=== PATIENT | male | born 1970 | race Caucasian/White ===

== ENCOUNTER 2025-02-09 13:56 | Emergency (ER) | payer OTHER, SELFPAY ==
--- OUTSIDE RECORDS SUMMARY | 2024-11-02 11:30 | XMS_ITS | Encounter Summary ---
[facility] Address [address] [place] [address] Care Team Providers Care Business Development Assistant Name Role Phone Marika Mendez PA-C Primary Care Provider [phone] Reason for Visit * ReasonCommentsKnee Problem Encounter Details DateTypeDepartmentCare Team (Latest Contact Info)Xofpqajajyj86/05/2025 12:30 PM CDTTherapy [facility] [address] [phone] [place] [address] [place], [place] [phone] Chronic pain of right knee (Primary Dx) Social History Tobacco UseTypesPacks/DayYears UsedDateSmoking Tobacco: GyxymbRktkdguftc690Mumo: 2010Smokeless Tobacco: FormerSnuff, ChewQuit: 2010Alcohol UseStandard Drinks/WeekCommentsYes6 (1 standard drink = 0.6 oz pure alcohol)PHQ-2AnswerDate RecordedPHQ-2 Etqfr264Sex and Gender InformationValueDate RecordedSex Assigned at BirthNot on fileLegal LsiJufg44/10/2012 5:04 AM CDTGender Identity Not on fileSexual OrientationNot on filedocumented as of this encounter Progress Notes * Jeffery Peña, PT - 11/02/2024 12:30 PM CDT Physical Therapy Discharge Summary Vijay Fernando has not attended therapy since last documented visit. There are no further visits scheduled at this time and Vijay is currently considered discharged from therapy. Unable to assesscurrent level of function and goals due to unplanned discharge. PT - Discharge Total Visits: 2 Reason for discharge: Patient has not been consistent with attendance and/or failed to schedule appointments as planned. Please see previous visit documentation of status at last treatment. Jeffery Peña, PT Physical Therapy follow up Payor: [employer] / Plan: SELF MANAGED CARE / Product Type: Commercial / Visit Number: 2 Visit Diagnosis: Diagnosis and Associated Orders ICD-10-CM 1. Chronic pain of right knee M25.561 G89.29 Referring Diagnosis: Chronic pain of right knee Date of Onset/Referral: 09/27 Precautions/Barriers/Pertinent Medical History: Left knee meniscectomy several years ago Orders: Eval and treat SUBJECTIVE Reason for Visit: Patient states knee feels about the same. Still getting some pain when pulling itvery tight in deep knee flexion. Has not been getting pain when standing up, and is able to do mostof his exercises without difficulty. No questions on HEP. Pain: Current: 0/10 and Worst: 3/10 OBJECTIVE ROM: Knee: AROM Right 5-0-130 deg Strength: Motion (x/5) Right Left Comments Hip Flexion 5 5 Hip Extension Hip Abduction 4+ 4+ Hip Adduction 4+ 4+ Hip External Rot. Hip Internal Rot. Knee Flexion 5 5 Knee Extension 4+ 4+ TODAY'S INTERVENTION/CHARGES: Therapeutic Exercise - (91968): 8 minutes Exercises designed to develop strength, endurance, range of motion and flexibility - Bike warm up for 5 minutes level 4 - Review of objective measures, see above - Review of HEP Therapeutic Activity - (75390): 26 minutes Dynamic activities to improve functional performance at home, work, and in the community. - Squat to 18 inch box, 1 x 10 no weight, - Goblet squat with 25 lbs, 2 x 10 - Single leg RDL 20 lbs kettlebell, 1 x 12 with each leg - Lunge, 2 x 12 each leg - Leg press with 120 lbs and >90 degree knee flexion, 3 x 8 - Sled push with 45 lbs plate, 60 feet forward, 60 feet backward pull - Discussed progression of exercises by altering load, intensity, or positioning to increase or decrease difficulty - Discussed ways to increase load to single leg exercises as well as target deep squat position in gym Home Program: Access Code: [email or web address] URL: [email or web address] Date: 10/26/2024 Prepared by: Jeffery Peña Exercises - Staggered Stance Squat - 3-4 x daily - 7 x weekly - 2-3 sets - 10 reps - Forward Step Down Touch with Heel - 3-4 x daily - 7 x weekly - 2-3 sets - 6-8 reps - Single-Leg Yi Deadlift With Kettlebell - 3-4 x daily - 7 x weekly - 2 sets - 10-12 reps Timed Charges (Minutes): 51128 - Therapeutic Activities: 26 [id number] - Therapeutic Exercise: 8 Timed Code Treatment Minutes: 34 Total Treatment Minutes: 34 ASSESSMENT Therapist Impression/Patient Response: Patient tolerates all exercises well, including the deep legpress with 120 lbs. PT provided education on progression of exercises to continue to see benefit. Patient will perform HEP in addition to his gym routine and return to the clinic if symptoms regress. Goals/Functional Outcomes (to be met by end of therapy, noted in PLAN below): Patient will be independent with home exercise program for improved self management. Patient will improve Knee Outcome Survey score from 69% to greater than 80% (MCID + 7%, higher score indicates less disability) indicating improvement in general function. 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 Sports/Leisure: Return to prior level of leisure or recreational activities, including deep squatting, no limitation. PLAN Recommendations/Plan for Next Visit: Assess response to independent management, continue to progress load as tolerated PT Frequency/Duration: 1x/week for 12 visits MING ASSISTANT documented in this encounter Plan of Treatment Not on file documented as of this encounter Visit Diagnoses Diagnosis Chronic pain of right knee- Primary documented in this encounter Care Teams Team MemberRelationshipSpecialtyStart DateEnd Date Marika Mendez PA-C [address] [place] [address] PCP - GeneralPhysician Assistant09/26/23documented as of this encounter
--- OUTSIDE RECORDS SUMMARY | 2024-12-27 12:10 | XMS_ITS | Encounter Summary ---
[facility] Address [address] [place] [address] Care Team Providers Care Shipping/Receiving Clerk Name Role Phone Marika Mendez PA-C Primary Care Provider [phone] Reason for Visit * ReasonCommentsFollow-up Encounter Details DateTypeDepartmentCare Team (Latest Contact Info)Weyfwqqiefk62/30/2025 1:10 PM CDTOffice Visit [facility] [address] [phone] Jo Aguirre, PRODUCT DESIGN SPECIALIST, ENTERPRISE SALES PERSON [address] [place], [place] [address] Lower abdominal pain (Primary Dx) Social History Tobacco UseTypesPacks/DayYears UsedDateSmoking Tobacco: QmodieNflazsvzvg308Kjhy: 2010Smokeless Tobacco: FormerSnuff, ChewQuit: 2010Alcohol UseStandard Drinks/WeekCommentsYes6 (1 standard drink = 0.6 oz pure alcohol)PHQ-2AnswerDate RecordedPHQ-2 Obmml094Sex and Gender InformationValueDate RecordedSex Assigned at BirthNot on fileLegal DvsOgjs63/10/2012 5:04 AM CDTGender Identity Not on fileSexual OrientationNot on filedocumented as of this encounter Last Filed Vital Signs Vital SignReadingTime TakenCommentsBlood Pressure--Pulse--Temperature-- Respiratory Rate--Oxygen Saturation--Inhaled Oxygen Concentration--Tpfdqp88.3 kg (168 lb 3.2 oz)12/27/2024 1:08 PM BIGZtbsfg333.2 cm (5' 7)12/27/2024 1:08 PM CDTBody Mass Index26.341 1:08 PM CDTdocumented in this encounter Patient Instructions * Patient Instructions* Jo Aguirre APRN, CNP - 12/27/2024 1:10 PM CDT Wei, today you were seen for a follow up regarding abdominal discomfort. You are to continue to eatsmaller more frequent meals. Continue to avoid known trigger foods. Contact the GI Clinic should the symptoms of diverticulitis reoccur. Should they occur, start a liquid diet, and send a my chart note. Based on symptoms, an abdominal CT may be ordered to rule out diverticulitis. You will follow upin the GI Clinic as needed or in one year. Plan: Continue to eat smaller more frequent meals. Continue to avoid known trigger foods. Contact the GI Clinic should the symptoms of diverticulitis reoccur. Should they occur, start a liquid diet, and send a my chart note. Based on symptoms, an abdominal CT may be ordered to rule out diverticulitis. You will follow up in the GI Clinic as needed or in one year. documented in this encounter Progress Notes * Jo Aguirre APRN, CNP - 12/27/2024 1:10 PM CDT GI Clinic Progress Note Name: Vijay Fernando CSN: [id number] : 1970 Date of Visit: 12/27/24 CHIEF COMPLAINT: Lower Abdominal Discomfort; History of Diverticulitis HISTORY OF PRESENT ILLNESS: Vijay Fernando is a 54 y.o. male seen in clinic today for follow-up regarding the above complaint. Wei was diagnosed with diverticulitis on 04/12/23, and treated with a 10-day course of Augmentin. Despite initial improvement, he continued to experience burning abdominal pain and remained on a liquid diet. A follow-up CT scan on 04/23/23 was normal. By May, Wei reported feeling better with stableweight and no reflux or bloating, though he still had intermittent sharp, stabbing lower abdominal pain. A CT scan was again negative, and a colonoscopy was recommended. In September, fearing a recurrence of diverticulitis, he contacted the GI clinic; another CT was negative. A colonoscopy on 10/11/23 revealed sigmoid diverticulosis and a small polyp, which was removed; biopsies were normal, and a repeat colonoscopy was advised in 10 years. By November, Wei reported significant improvement, with a healthy diet, stable weight at 162 lbs, and adequate hydration. He continued to experience occasionalfocal abdominal discomfort but denied systemic symptoms or abnormal bowel habits, maintaining [employer] stool type 4 twice daily. Today, states he experienced per/central abdominal pain which was focal, lasted 4-5 days, describedas sharp and stabbing in early November. He implemented a liquid diet for 24 hours, and a bland dietfor the next week, and symptoms resolve. He thinks it may have been due to eating steak, as red meat can be a trigger. He was also experiencing mild symptoms today, but feels this maybe due to him having over eaten on his birthday. Denies any fever, chills, nausea or vomiting. Appetite has been good. Continues to eat smaller morefrequent meals. Diet described as fairly healthy and well balanced. Typically avoids trigger foods including meats, spicy foods, and junk food. Averages 48-64 oz of water daily. Weight has been stable. Abdominal pain intermittent and noted above. Denies any early satiety or abdominal fullness. No abdominal bloating. Bowel habit described as a [employer] stool scale type 4, twice daily. No melena or hematochezia. No new medications, medication changes, or recent antibiotic use. He only takes NSAIDs as needed. Dietary supplements include calcium, vitamin-D, and a multivitamin. Averages 0-2 alcoholic beverages a week. Former smoker. No marijuana use, no edibles, no illicit drug use. Averages 7 hours sleep nightly. Previous abdominal surgery would include an umbilical hernia repair. Current medications, allergies, medical problems, family and social histories reviewed and updated as indicated. O: Review of Systems - Negative except as given in the HPI. PMH: Past Medical History: Diagnosis Date Ascending aorta dilatation (HRC) Essential (primary) hypertension (HRC) Squamous cell carcinoma of skin of trunk PSH: Past Surgical History: Procedure Laterality Date MENISCECTOMY Left TONSILLECTOMY Outpatient Meds: Outpatient Medications Prior to Visit Medication Sig Dispense Refill finasteride (PROPECIA) 1 MG tablet Take 1 Tablet (1 mg) by mouth daily. lisinopril (ZESTRIL) 10 MG tablet Take 1 Tablet (10 mg) by mouth daily. 90 Tablet 3 No facility-administered medications prior to visit. Family History Problem Relation Name Age of Onset High Cholesterol Mother Dot Hypertension Mother Dot Cancer Father Kalyan Hypertension Father Kalyan Crohn's Disease Sister Social History Tobacco Use Smoking status: Former Current packs/day: 0.00 Average packs/day: 1 pack/day for 20.0 years (20.0 ttl pk-yrs) Types: Cigarettes Quit date: 2009 Years since quittin.8 Smokeless tobacco: Former Types: Snuff, Chew Quit date: 2009 Vaping Use Vaping status: Never Used Substance Use Topics Alcohol use: Yes Alcohol/week: 6.0 standard drinks of alcohol Types: 6 Cans of beer per week Drug use: Never PE: There were no vitals filed for this visit. General appearance: alert, cooperative, no distress, appears stated age, Eyes: conjunctivae/corneasclear. Abdomen: soft, non-tender; bowel sounds normal; Skin: Warm, dry and Neurologic: Grossly normal LABS: Lab Results Component Value Date WBC 5.1 07/22/2023 Hemoglobin 13.5 07/22/2023 HCT 40.8 07/22/2023 MCV 92.5 07/22/2023 Platelets 252 07/22/2023 Lab Results Component Value Date Alkaline Phosphatase 53 07/22/2023 Bilirubin, Total 0.6 07/22/2023 Protein, Total 6.9 07/22/2023 Albumin 4.2 07/22/2023 AST (SGOT) 22 07/22/2023 ALT (SGPT) 23 07/22/2023 Lab Results Component Value Date Sodium 137 11/28/2024 Potassium 4.3 11/28/2024 Chloride 103 11/28/2024 CO2 25 11/28/2024 Lab Results Component Value Date Creatinine 0.82 11/28/2024 IMAGING Reviewed in [facility] Everywhere IMPRESSION/PLAN 54 year-old male seen in clinic for follow-up regarding lower abdominal discomfort. History of diverticulitis, treated in March/2023. Colonoscopy 09/2023 was normal. Repeat in 10 years. Appetite is good, weight has been stable. Denies any heartburn reflux, or abdominal bloating. Still experiences intermittent episodes of lower/central abdominal discomfort which can lasts minutes to an hour, described as stabbing and sharp, and is focal. Resolves on its own. Last episode occurred in early November, and lasted about 4-5 days then resolved. Bowel habit described as a [employer] stool scale type 4, 2 times daily. No melena or hematochezia. Intermittent Lower Abdominal Pain Continue to eat smaller more frequent meals. Continue to avoid known trigger foods. Contact the GI Clinic should the symptoms of diverticulitis reoccur. Should they occur, start a liquid diet, and send a my chart note. Based on symptoms, an abdominal CT may be ordered to rule out diverticulitis. You will follow up in the GI Clinic as needed or in one year. Total time for the visit was 18 minutes including, but not limited to, vvf-ynas-pj-face time spent reviewing records, counseling, and coordination of care. Patient is agreeable to the plan of care, and is aware to contact the GI Clinic or their primary provider if symptoms change or worsen significantly. documented in this encounter Plan of Treatment Not on file documented as of this encounter Visit Diagnoses Diagnosis Lower abdominal pain- Primary Abdominal pain, other specified site documented in this encounter Care Teams Team MemberRelationshipSpecialtyStart DateEnd Date Marika Mendez PA-C [address] [place] [address] PCP - GeneralPhysician Assistant09/26/23documented as of this encounter
[2025-02-09] VITALS (8 sets, daily range): BP systolic 129–146; BP diastolic 79–88; PULSE 61–79; RESP 11–24; TEMP 36.1; O2SAT 94–100; BMI 26.6
--- OUTSIDE RECORDS SUMMARY | 2025-02-09 13:59 | XMS_ITS | Clinical Summary ---
Author Organization [facility] Address [address], [place] [address] Care Team Providers Care Double Head Machine Operator Name Role Phone Marika Mendez PA-C Primary Care Provider + [phone] Source Comments You are receiving this document as you are listed as the primary care provider,follow-up provider, or the patient has been referred to you for consultation.This is in compliance with the Medicare and[facility] Hospitalcaid EHR Incentive Program,which states Providers who transition their patient to another setting of careor provider of care or refers their patient to another provider of care shouldprovide summary care record for each transition of care or referral. [facility] Allergies Active AllergyReactionsCriticalityNoted DateCommentsAzithromycinOther, see jyndhnuhAes74/21/2021 Other reaction(s): stomach upset, irritation EscitalopramOther, see pczfkqjpGiac90/30/2020 Other reaction(s): weight gain, grinding teeth, felt off Medications MedicationSigDispense QuantityRefillsLast FilledStart DateEnd DateStatus finasteride (PROPECIA) 1 MG tablet Take 1 Tablet (1 mg) by mouth daily.05/30/2023ctive lisinopril (ZESTRIL) 10 MG tablet Indications:Essential hypertension (HRC)Take 1 Tablet (10 mg) by mouth daily. 90 Tablet ctive Active Problems ProblemNoted DateDiagnosed DateChronic left shoulder pain09/27/2024Essential kefdaeuupafu07/17/2023neurysm of ascending aorta without nnsvimu3007/14/2022 Depression with kmukjqd37/28/9349Oxtivxtzjnm51/28/2010Thoracic aortic ectasia Squamous cell carcinoma of skin of trunk Encounters DateTypeDepartmentCare IppwUtgncgprknu22/30/2025 1:10 PM CDTOffice Visit [facility] at [facility] [address] [address] [place] [address] Jo Aguirre, TIE LAYER, FRANCI Lower abdominal pain (Primary Dx)12/11/2024Results Follow-Up [place] [address] [facility] [address] [place] [phone] Marika Mendez PA-C 12/10/2024 2:00 PM CDTProcedure Visit Cardiology at [facility] [address] [address] [address] [place] [address] 11/30/2024Results Follow-Up [place] [address] [facility] [address] [place] [phone] Marika Mendez PA-C 11/28/2024 11:20 AM CDTLab Visit [facility] [address] [place] [address] Essential hypertension (HRC)11/28/2024 11:00 AM CDTOffice Visit [place] [address] [facility] [address] [place] [phone] Marika Mendez PA-C Essential hypertension (HRC) (Primary Dx); Aneurysm of ascending aorta without rupture (HRC)from Last 3 Months Immunizations ImmunizationAdministration DatesNext DueTd013471Wjnd74/23/2024 Family History Medical HistoryRelationNameCommentsCancerBirth FatherJeromeHypertensionBirth FatherJeromeHigh CholesterolBirth MotherDotHypertensionBirth MotherDotCrohn's DiseaseSisterRelationNameStatusCommentsBirth FatherJeromeBirth MotherDotSister Alive Social History Tobacco UseTypesPacks/DayYears UsedDateSmoking Tobacco: SxsodiPaflluapik576Qkgz: 2009Smokeless Tobacco: FormerSnuff, ChewQuit: 2010 Tobacco Cessation:Counseling Given: Not Answered Alcohol UseStandard Drinks/WeekCommentsYes6 (1 standard drink = 0.6 oz pure alcohol)PHQ-2AnswerDate RecordedPHQ-2 Xkojl319Sex and Gender Information ValueDate RecordedSex Assigned at BirthNot on fileLegal QmsCjoz27/10/2012 5:04 AM CDTGender IdentityNot on fileSexual OrientationNot on file Last Filed Vital Signs Vital SignReadingTime TakenCommentsBlood Hsmgyqbg409/8311/28/2024 10:40 AM CDT Izkvb864111/28/2024 10:40 AM FFXEotgczeiqsk67.2 ??C (97.2 ??F)07/03/2024 12:07 PM CDTRespiratory Tgqf282707/03/2024 12:07 PM CDTOxygen Mydrojjxsf80%07/03/2024 12:07 PM CDTInhaled Oxygen Concentration--Phvqws57.3 kg (168 lb 3.2 oz)12/27/2024 1:08 PM TQQCmbhlr482.2 cm (5' 7)12/27/2024 1:08 PM CDTBody Mass Index26.341 1:08 PM CDT Plan of Treatment Health MaintenanceDue DateLast DoneCommentsAdult Preventive Visit12/25/1987HepB Vaccine (1)1988Pneumococcal Vaccine 50+ Yrs (1 of 1 - PCV)12/25/2019 Zoster/Shingles Vaccine (1 of 2)12/25/2019COVID-19 Vaccine (1 - season) 2024Influenza Vaccine (#1)2024PSA Screening Ucpwjgmcqr97/01/2026 Postponed from 1970 (Discussed and Declined)Zwnqljkkisq76/04/2028 10/01/2022iabetes Screening- (based on age and BMI), 3DTaP/Tdap/Td Vaccine (2 - Tdap)/, 02/28/1999 Vyxytbsxtow73/13//4RSV Vaccine (1 - 1-dose 75+ series)2044HIV Screening (Preventive Services)Fjjtcysbf91/24/2023Hep C Screening (Preventive Services)Gaplnusnv20/24/2023HepA VaccineAged OutNo longer eligible based on patient's age to complete this topicHib VaccineAged OutNo longer eligible based on patient's age to complete this topicIPV (Polio) VaccineAged OutNo longer eligible based on patient's age to complete this topicMCV4 VaccineAged OutNo longer eligible based on patient's age to complete this topicMeningococcal B VaccineAged OutNo longer eligible based on patient's age to complete this topic Procedures Procedure NamePriorityDate/TimeAssociated DiagnosisCommentsECHOCARDIOGRAMRoutine 12/10/2024 1:51 PM CDT Aneurysm of ascending aorta without rupture (HRC) BASIC METABOLIC XUMGABsacxwd45/01/2025 10:57 AM CDT Essential hypertension HGB J7OXjfnrso94/01/2025 10:57 AM CDT Essential hypertension ENDOSCOPY, COLON, SCREENING/OELHJZMXMAYdnumpj78/13/2024 2:10 PM CDT Diverticulitis LIPID PANEL & DIRECT LDL (IF NEEDED)Gqnuzfj3310/01/2022 2:21 PM CDT Aneurysm of ascending aorta without rupture (HRC) HIV 1/2 AG/AB 4TH EWVQpyexqc64/24/2023 7:34 AM CDT Screening for HIV (human immunodeficiency virus) HEPATITIS C ANTIBODY, WITH REFLEX (ANTI-HCV)Gxibefj6807/21/2022 7:34 AM CDT Need for hepatitis C screening test from Last 3 Months or Most Recently Relevant to Health Maintenance Results * Echocardiogram (12/10/2024 1:51 PM CDT)Specimen (Source)Anatomical Location / LateralityCollection Method / VolumeCollection TimeReceived Time12/10/2024 1:51 PM CDT Narrative PN ECHO - 12/10/2024 4:37 PM CDT Procedure type: ECHOCARDIOGRAM Procedure ? 12/10/2024 1:51 PM date/time: Facility: ? [facility] Study location: ? [facility] Accession #: ?[id number] SUMMARY: Moderate dilatation of the aortic root (4.5 cm). No significant change from prior study. FINDINGS LEFT VENTRICLE: Left ventricular ejection fraction is estimated at 60%. Normal left ventricular size, global and regional function. Normal left ventricular wall thickness. Normal left ventricular diastolic function. RIGHT VENTRICLE: Right ventricle is normal in size and function. LEFT ATRIUM: Normal left atrium. RIGHT ATRIUM: Normal right atrial size. MITRAL VALVE: Normal mitral valve structure and function. TRICUSPID VALVE: Normal tricuspid valve structure and function. Pulmonary artery systolic pressure estimate is normal. AORTIC VALVE: Normal aortic valve structure and function. The aortic valve is tricuspid. AORTA/GREAT VESSELS: Moderate dilatation of the aortic root (4.5 cm). The inferior vena cava is normal suggesting normal RA pressure. PULMONARY VALVE: Normal pulmonic valve structure and function. PERICARDIUM & PLEURA: There is no significant pericardial effusion. AORTIC VALVE Peak velocity: ? 1.3 m/s Peak gradient: ? 6.5 mmHg Mean velocity: ? 0.9 m/s Mean gradient: ? 4 mmHg Area (ContVTI): ?3.5 cm^2 Area (ContVTI) Index: ?1.9 cm^2/m^2 Area (Cont VMax): ?3.4 cm^2 AV VTI: ?26.9 cm Dimensionless Index: ? 0.93 LVOT LVOT diameter: ? 2.2 cm LVOT VTI: ?25.1 cm Peak velocity: ? 1.1 m/s Peak gradient: ? 5 mmHg Mean velocity: ? 80.1 cm/s Mean gradient: ? 3 mmHg LVOT Area: ? 3.8 cm^2 LVOT Stroke Volume: ?95.4 ml LVOT SV index: ? 52 ml/m^2 AORTA Sinus of Valsalva: ? 4.5 cm Sinus of Valsalva Index: ?? 2.64 cm/m Ascending Ao (prox): ? 3.6 cm Asc Ao (prox) Index: ? 2.12 cm/m MITRAL VALVE Peak E-wave: ? 63.4 cm/s Peak A-wave: ? 72.8 cm/s MV P1/2t: ?85 ms E/A ratio: ? 0.87 Area (P1/2t): ?2.6 cm^2 Deceleration time: ? 289 ms TRICUSPID VALVE TR velocity: ? 1.7 m/s TR gradient: ? 11.8 mmHg LEFT ATRIUM LA Area (A4C): ? 16.9 cm^2 LA Volume (BP): ?43.2 ml LA Volume (BP) Index: ?23.6 ml/m^2 LA Volume (A2C): ? 40.2 ml LA Volume (A4C): ? 42.9 ml LA Volume (A2C) Index: ? 22 ml/m^2 LA Volume (A4C) Index: ? 23.4 ml/m^2 LEFT VENTRICLE LVIDd (2D): ?5.2 cm LVIDs (2D): ?2.9 cm Septum diastolic (2D): ? 1.1 cm Post wall diastolic (2D): ?1 cm Rel wall thickness: ?0.4 LV mass (ASE): ? 205.3 g LV mass (ASE) Index: ? 111.9 g/m^2 FS: ?44 % LV DIASTOLIC FUNCTION E' septal velocity: ?7.6 cm/s E' lateral velocity: ? 13.8 cm/s A' septal velocity: ?12.6 cm/s A' lateral velocity: ? 10.6 cm/s E/E' Septal: ? 8.3 E/E' Lateral: ?4.6 E/E' Average: ?6.5 LEFT VENTRICLE: M-MODE LVEDV (Teich): ? 130.1 ml LVESV (Teich): ? 33.3 ml EF (Teichholz): ?74 % EF Estimated: ? 60 % RIGHT VENTRICLE TAPSE: ? 2.4 cm RV S' velocity: ?10.4 cm/s IVC IVC expiration: ?2 cm INDICATIONS Aortic root dilation. PROCEDURE 2-D Quality: Adequate quality 2-dimensional echo was performed and interpreted. Doppler Quality: Adequate quality pulse, continuous wave, and color Doppler was performed and interpreted. Contrast medium: ?Not Applicable Height: ? 67 in. Weight: ? 159 lb. Blood pressure: ? 133 / 84 mmHg BSA: ?1.8 m^2 BMI: ?24.9 kg/m^2 Rhythm: ? Sinus bradycardia DEMOGRAPHICS Patient name: ? NOEMÍ Montes Date of : ?1970 Age: ?53 year(s) Gender: ? Male Procedure Staff Interpreting ?EDDIE MICHELE MD Senior Quality Control Inspector: Vp Packaging: ?JG, RD Ordering Provider: ?MARIKA PALACIOS PA-C Primary Provider: ? MARIKA MENDEZ. FRED Procedure Note Eddie Michele MD - 12/10/2024 Procedure type: ECHOCARDIOGRAM Procedure 12/10/2024 1:51 PM date/time: Facility: [facility] Study location: [facility] SUMMARY: Moderate dilatation of the aortic root (4.5 cm). No significant change from prior study. FINDINGS LEFT VENTRICLE: Left ventricular ejection fraction is estimated at 60%. Normal left ventricular size, global and regional function. Normal left ventricular wall thickness. Normal left ventricular diastolic function. RIGHT VENTRICLE: Right ventricle is normal in size and function. LEFT ATRIUM: Normal left atrium. RIGHT ATRIUM: Normal right atrial size. MITRAL VALVE: Normal mitral valve structure and function. TRICUSPID VALVE: Normal tricuspid valve structure and function. Pulmonary artery systolic pressure estimate is normal. AORTIC VALVE: Normal aortic valve structure and function. The aortic valve is tricuspid. AORTA/GREAT VESSELS: Moderate dilatation of the aortic root (4.5 cm). The inferior vena cava is normal suggesting normal RA pressure. PULMONARY VALVE: Normal pulmonic valve structure and function. PERICARDIUM & PLEURA: There is no significant pericardial effusion. AORTIC VALVE Peak velocity: 1.3 m/s Peak gradient: 6.5 mmHg Mean velocity: 0.9 m/s Mean gradient: 4 mmHg Area (ContVTI): 3.5 cm^2 Area (ContVTI) Index: 1.9 cm^2/m^2 Area (Cont VMax): 3.4 cm^2 AV VTI: 26.9 cm Dimensionless Index: 0.93 LVOT LVOT diameter: 2.2 cm LVOT VTI: 25.1 cm Peak velocity: 1.1 m/s Peak gradient: 5 mmHg Mean velocity: 80.1 cm/s Mean gradient: 3 mmHg LVOT Area: 3.8 cm^2 LVOT Stroke Volume: 95.4 ml LVOT SV index: 52 ml/m^2 AORTA Sinus of Valsalva: 4.5 cm Sinus of Valsalva Index: 2.64 cm/m Ascending Ao (prox): 3.6 cm Asc Ao (prox) Index: 2.12 cm/m MITRAL VALVE Peak E-wave: 63.4 cm/s Peak A-wave: 72.8 cm/s MV P1/2t: 85 ms E/A ratio: 0.87 Area (P1/2t): 2.6 cm^2 Deceleration time: 289 ms TRICUSPID VALVE TR velocity: 1.7 m/s TR gradient: 11.8 mmHg LEFT ATRIUM LA Area (A4C): 16.9 cm^2 LA Volume (BP): 43.2 ml LA Volume (BP) Index: 23.6 ml/m^2 LA Volume (A2C): 40.2 ml LA Volume (A4C): 42.9 ml LA Volume (A2C) Index: 22 ml/m^2 LA Volume (A4C) Index: 23.4 ml/m^2 LEFT VENTRICLE LVIDd (2D): 5.2 cm LVIDs (2D): 2.9 cm Septum diastolic (2D): 1.1 cm Post wall diastolic (2D): 1 cm Rel wall thickness: 0.4 LV mass (ASE): 205.3 g LV mass (ASE) Index: 111.9 g/m^2 FS: 44 % LV DIASTOLIC FUNCTION E' septal velocity: 7.6 cm/s E' lateral velocity: 13.8 cm/s A' septal velocity: 12.6 cm/s A' lateral velocity: 10.6 cm/s E/E' Septal: 8.3 E/E' Lateral: 4.6 E/E' Average: 6.5 LEFT VENTRICLE: M-MODE LVEDV (Teich): 130.1 ml LVESV (Teich): 33.3 ml EF (Teichholz): 74 % EF Estimated: 60 % RIGHT VENTRICLE TAPSE: 2.4 cm RV S' velocity: 10.4 cm/s IVC IVC expiration: 2 cm INDICATIONS Aortic root dilation. PROCEDURE 2-D Quality: Adequate quality 2-dimensional echo was performed and interpreted. Doppler Quality: Adequate quality pulse, continuous wave, and color Doppler was performed and interpreted. Contrast medium: Not Applicable Height: 67 in. Weight: 159 lb. Blood pressure: 133 / 84 mmHg BSA: 1.8 m^2 BMI: 24.9 kg/m^2 Rhythm: Sinus bradycardia DEMOGRAPHICS Patient name: NOEMÍ Montes Date of : 1970 Age: 53 year(s) Gender: Male Procedure Staff Interpreting EDDIE MICHELE MD Senior Quality Control Inspector: Vp Packaging: XOCHITL HERNANDEZ Ordering Provider: MARIKA MENDEZ. FRED Primary Provider: MARIKA MENDEZ. FRED Authorizing ProviderResult TypeResult StatusAmy Chadwick MARIN ECHO ORDERABLESFinal ResultPerforming OrganizationAddressCity/State/ZIP CodePhone Number PN ECHO * (ABNORMAL) BMP (11/28/2024 10:57 AM CDT)ComponentValueRef RangeTest Method Analysis TimePerformed AtPathologist JtkykwfanMikpqb217041 - 145 mmol/L 11/28/2024 6:05 PM [facility]ORATORYPotassium4.33.5 - 5.1 mmol/L 11/28/2024 6:05 PM [facility] VTLFNNFZJFLieiiljg13022 - 109 mmol/L 11/28/2024 6:05 PM [facility] FBXCTGYMSBUO51563 - 29 mmol/L1 6:05 PM [facility] LABORATORYAnion Gap96 - 16 mmol/L1 6:05 PM [facility] LABORATORYCalcium9.68.4 - 10.4 mg/dL11/28/2024 6:05 PM [facility] DVBONURNJQYGN319 - 26 mg/dL11/28/2024 6:05 PM [facility] LABORATORYCreatinine0.820.73 - 1.18 mg/dL11/28/2024 6:05 PM [facility] QWUXFKNEYFVwhhsgk211(H)70 - 100 mg/dL11/28/2024 6:05 PM [facility] LABORATORYComment:The given reference range is for the fasting state. Non- fasting reference range for glucose is 70 -180 mg/dL.GFR, Estimated>60>60 mL/min/1.50p76611/28/2024 6:05 PM [facility] LABORATORYHours Fasting0.08 - 12 Hours11/28/2024 6:05 PM [facility] LABORATORYSpecimen (Source)Anatomical Location / LateralityCollection Method / VolumeCollection TimeReceived Time BloodVenipuncture / Yojpitu4911/28/2024 10:57 AM CDT1 10:57 AM CDT Narrative Authorizing ProviderResult TypeResult StatusAmy Chadwick Andrea WHITINGB_1Final Result Performing OrganizationAddressCity/State/ZIP CodePhone Number [facility] CLIA: [id number] [place] [address] * (ABNORMAL) Hgb A1C (Expected: Now) - Collect in Lab (11/28/2024 10:57 AM CDT) ComponentValueRef RangeTest MethodAnalysis TimePerformed AtPathologist SignatureHemoglobin A1C5.7(H)<=5.6 %11/29/2024 8:55 AM [facility] LABORATORYEstimated Average Glucose (Calc)117< 117 mg/dL11/29/2024 8:55 AM [facility] LABORATORYComment:Estimated average glucose (eAG) converts A1c into glucose units (mg/dL) and estimates average glucose over the past approximately 3 months. The eAG reference interval (<117 mg/dL) corresponds to an A1c of <5.7%.Specimen (Source)Anatomical Location / LateralityCollection Method / VolumeCollection TimeReceived TimeBlood Venipuncture / Ejjynkk3311/28/2024 10:57 AM CDT1 10:57 AM CDT Narrative [facility] - 11/29/2024 8:55 AM CDT For patients not previously diagnosed with diabetes: 5.7-6.4%: Increased risk for diabetes 6.5% and greater: Diagnostic for diabetes For patients diagnosed with diabetes: <8.0%: Goal of therapy for ages 18-75 Clinicians may recommend a higher or lower goal for specific individuals. Authorizing ProviderResult TypeResult StatusAmy Chadwick Andrea MARSHALL-CONNORB_1Final Result Performing OrganizationAddressCity/State/ZIP CodePhone Number [facility] CLIA: [id number] [address] * Endoscopy, colon, diagnostic (10/11/2023 2:10 PM CDT)Anatomical Region LateralityModalityOtherSpecimen (Source)Anatomical Location / Laterality Collection Method / VolumeCollection TimeReceived Time10/11/2023 2:10 PM CDT Narrative 10/11/2023 2:10 PM CDT Patient Name: Vijay Fernando Procedure Date: 10/11/2023 2:10 PM Date of : 1970 Admit Type: Outpatient Age: 52 Note Status: Finalized Attending MD: Yang Bradley MD, Procedure: ? Colonoscopy Indications: ? Screening for colorectal malignant ? neoplasm, Incidental - Follow-up of ? diverticulitis Providers: ? Yang Bradley MD, Maritza ? RICARDO Aguirre Referring MD: ?Jo Aguirre Medicines: ? Fentanyl 150 micrograms IV, ? Midazolam 3 mg IV, O2 2 l/min per ? NC and CO2 for insufflation Complications: ? No immediate complications. Procedure: ? After I obtained informed consent, ? the scope was passed under direct ? vision. Throughout the procedure, ? the patient's blood pressure, ? pulse, and oxygen saturations were ? monitored continuously. The ? [id number] was introduced through ? the anus and advanced to the ? terminal ileum, with identification ? of the appendiceal orifice and IC ? valve. The colonoscopy was ? performed without difficulty. The ? patient tolerated the procedure ? well. The quality of the bowel ? preparation was good. Anatomical ? landmarks were photographed. Findings: ? The terminal ileum appeared normal. ? A 3 mm polyp was found in the proximal transverse ? colon. The polyp was sessile. The polyp was removed ? with a cold snare. Resection and retrieval were ? complete. ? Multiple medium-mouthed and small-mouthed diverticula ? were found in the sigmoid colon. ? The exam was otherwise without abnormality. Moderate Sedation: ? Moderate (conscious) sedation was administered by the ? nurse and supervised by the endoscopist. The ? patient's oxygen saturation, heart rate, blood ? pressure and response to care were monitored. Total ? physician intraservice time was 15 minutes. ? This time is the duration from the initial medication ? administration until the silver spray worker assists with ? initial maneuvers (biopsy / polypectomy / etc.), or ? if no maneuvers are performed, until the endoscopist ? leaves the room. Impression: ?- The examined portion of the ileum ? was normal. ? - One 3 mm polyp in the proximal ? transverse colon, removed with a ? cold snare. Resected and retrieved. ? - Diverticulosis in the sigmoid ? colon. ? - The examination was otherwise ? normal. Recommendation: ?- Await pathology results. ? - Repeat colonoscopy in 7-10 years ? for surveillance based on pathology ? results. ? - High fiber diet and augmented ? water consumption diet. Procedure Code(s): ? --- Professional --- ? 46457, Colonoscopy, flexible; with ? removal of tumor(s), polyp(s), or ? other lesion(s) by snare technique ? G0500, Moderate sedation services ? provided by the same physician or ? other qualified health care ? professional performing a ? gastrointestinal endoscopic service ? that sedation supports, requiring ? the presence of an independent ? trained observer to assist in the ? monitoring of the patient's level ? of consciousness and physiological ? status; initial 15 minutes of ? intra-service time; patient age 5 ? years or older (additional time may ? be reported with 88037, as ? appropriate) Diagnosis Code(s): ? --- Professional --- ? Z12.11, Encounter for screening for ? malignant neoplasm of colon ? D12.3, Benign neoplasm of ? transverse colon (hepatic flexure ? or splenic flexure) ? K57.30, Diverticulosis of large ? intestine without perforation or ? abscess without bleeding CPT copyright 2021 [employer]. All rights reserved. The codes documented in this report are preliminary and upon internal combustion engine subassembler review may be revised to meet current compliance requirements. Yang Bradley MD 10/11/2023 2:51:47 PM This document has been electronically signed. Number of Addenda: 0 Note Initiated On: 10/11/2023 2:10 PM ? Endoscopy Report Procedure Note Yang Bradley MD - 10/11/2023 Patient Name: Vijay Fernando Procedure Date: 10/11/2023 2:10 PM Date of : 1970 Admit Type: Outpatient Age: 52 Note Status: Finalized Attending MD: Yang Bradley MD, Procedure: Colonoscopy Indications: Screening for colorectal malignant neoplasm, Incidental - Follow-up of diverticulitis Providers: Yang Bradley MD, Maritza Aguirre RN Referring MD: Jo Aguirre Medicines: Fentanyl 150 micrograms IV, Midazolam 3 mg IV, O2 2 l/min per NC and CO2 for insufflation Complications: No immediate complications. Procedure: After I obtained informed consent, the scope was passed under direct vision. Throughout the procedure, the patient's blood pressure, pulse, and oxygen saturations were monitored continuously. The [id number] was introduced through the anus and advanced to the terminal ileum, with identification of the appendiceal orifice and IC valve. The colonoscopy was performed without difficulty. The patient tolerated the procedure well. The quality of the bowel preparation was good. Anatomical landmarks were photographed. Findings: The terminal ileum appeared normal. A 3 mm polyp was found in the proximal transverse colon. The polyp was sessile. The polyp was removed with a cold snare. Resection and retrieval were complete. Multiple medium-mouthed and small-mouthed diverticula were found in the sigmoid colon. The exam was otherwise without abnormality. Moderate Sedation: Moderate (conscious) sedation was administered by the nurse and supervised by the endoscopist. The patient's oxygen saturation, heart rate, blood pressure and response to care were monitored. Total physician intraservice time was 15 minutes. This time is the duration from the initial medication administration until the silver spray worker assists with initial maneuvers (biopsy / polypectomy / etc.), or if no maneuvers are performed, until the endoscopist leaves the room. Impression: - The examined portion of the ileum was normal. - One 3 mm polyp in the proximal transverse colon, removed with a cold snare. Resected and retrieved. - Diverticulosis in the sigmoid colon. - The examination was otherwise normal. Recommendation: - Await pathology results. - Repeat colonoscopy in 7-10 years for surveillance based on pathology results. - High fiber diet and augmented water consumption diet. Procedure Code(s): --- Professional --- 00473, Colonoscopy, flexible; with removal of tumor(s), polyp(s), or other lesion(s) by snare technique G0500, Moderate sedation services provided by the same physician or other qualified health insurance healthcare representative performing a gastrointestinal endoscopic service that sedation supports, requiring the presence of an independent trained observer to assist in the monitoring of the patient's level of consciousness and physiological status; initial 15 minutes of intra-service time; patient age 5 years or older (additional time may be reported with 79374, as appropriate) Diagnosis Code(s): --- Professional --- Z12.11, Encounter for screening for malignant neoplasm of colon D12.3, Benign neoplasm of transverse colon (hepatic flexure or splenic flexure) K57.30, Diverticulosis of large intestine without perforation or abscess without bleeding CPT copyright 2021 [employer]. All rights reserved. The codes documented in this report are preliminary and upon internal combustion engine subassembler review may be revised to meet current compliance requirements. Yang Bradley MD 10/11/2023 2:51:47 PM This document has been electronically signed. Number of Addenda: 0 Note Initiated On: 10/11/2023 2:10 PM Endoscopy Report Authorizing ProviderResult TypeResult StatusTraci Chadwick Aguirre TIE LAYER, CNPET GI PROCEDURE ORDERABLESFinal Result * (ABNORMAL) Lipid Panel and Direct LDL(If Needed) (10/01/2022 2:21 PM CDT) ComponentValueRef RangeTest MethodAnalysis TimePerformed AtPathologist ItsqklflpTwnezyaijmn208(H)0 - 199 mg/dL10/01/2022 6:00 PM [facility] ZSQOBZOQZBSywrwtgendlu28<=149 mg/dL10/01/2022 6:00 PM [facility] HDL Mdsodomrmwr21>=40 mg/dL10/01/2022 6:00 PM [facility]ORATORYLDL, Urfasjycsc741<130 mg/dL10/01/2022 6:00 PM [facility] HDL Chol, Opvaamiown904<=159 mg/dL10/01/2022 6:00 PM [facility] Cholesterol/HDL Ratio3. 6:00 PM [facility]Hours Wrwnrdi020 6:00 PM [facility] LABSpecimen (Source)Anatomical Location / LateralityCollection Method / VolumeCollection TimeReceived Time BloodVenipuncture / Vebabad1210/01/2022 2:21 PM CDT10/01/2022 2:21 PM CDT Narrative Authorizing ProviderResult TypeResult StatusMarika CROCKETT_1Final Result Performing OrganizationAddressCity/State/ZIP CodePhone Number [facility] [address] [place] [address], [facility] [phone] [facility] [address] [place] [address], [facility] [phone] * HIV 1/2 Ag/Ab 4th Generation (07/21/2022 7:34 AM CDT)ComponentValueRef Range Test MethodAnalysis TimePerformed AtPathologist SignatureHIV 1/2 Antigen/Antibody (4th generation)Negative (Non Reactive)Negative (Non Reactive)07/21/2022 2:23 PM CDTMETHODIST LABORATORYComment:HIV-1 p24 Antigen and HIV-1/HIV-2 Antibody not detectedSpecimen (Source)Anatomical Location / LateralityCollection Method / VolumeCollection TimeReceived TimeBlood Venipuncture / Gtkkxac5107/21/2022 7:34 AM CDT07/21/2022 7:34 AM CDT Narrative Authorizing ProviderResult TypeResult StatusAmy Chadwick Mendez ROLANDO-CONNORB_1Final Result Performing OrganizationAddressCity/State/[facility] CodePhone Number [facility] [address] * Hepatitis C Antibody, with Reflex (07/21/2022 7:34 AM CDT)ComponentValueRef RangeTest MethodAnalysis TimePerformed AtPathologist SignatureHepatitis C AntibodyNegative (Non Reactive)Negative (Non Reactive)07/21/2022 2:23 PM CDT [facility]ORYComment:Antibodies to HCV not detected. Does not exclude the possiblity of exposure to HCV.Specimen (Source)Anatomical Location / LateralityCollection Method / VolumeCollection TimeReceived TimeBlood Venipuncture / Mmmvbyc6807/21/2022 7:34 AM CDT07/21/2022 7:34 AM CDT Narrative Authorizing ProviderResult TypeResult StatusMarika Mendez ROLANDO-CONNORB_1Final Result Performing OrganizationAddressCity/Special Care Hospital/ZIP CodePhone Number [facility] [address] from Last 3 Months or Most Recently Relevant to Health Maintenance Insurance Care Teams Team MemberRelationshipSpecialtyStart DateEnd Marika Mendez PA-C [address] [place] [address] PCP - GeneralPhysician Assistant09/26/23
--- OUTSIDE RECORDS SUMMARY | 2025-02-09 13:59 | XMS_ITS | Clinical Summary ---
Author Organization [facility] Address [address] [place] [address] Care Team Providers Care Drum Printer Name Role Phone Mikhail Sherman MD Primary Care Provider [phone] Allergies Active AllergyReactionsCriticalityNoted GevaFuytigtoJqyrxegidgfqJpo04/21/2021 Other reaction(s): stomach upset, irritation SamzvjzyqyfiGgsz41/30/2020 Other reaction(s): weight gain, grinding teeth, felt off Medications MedicationSigDispense QuantityRefillsLast FilledStart DateEnd DateStatus lisinopril (ZESTRIL) 10 MG tablet Take 10 mg by mouth daily11/28/2019Active rosuvastatin (CRESTOR) 40 MG tablet Indications:Hyperlipidemia LDL goal <70Take 1 tablet (40 mg) by mouth daily 90 tablet ctive metoprolol tartrate (LOPRESSOR) 25 MG tablet Indications:Thoracic ascending aortic aneurysm,Essential hypertensionTake 0.5 tablets (12.5 mg) by mouth 2 times daily 90 tablet ctive Active Problems ProblemNoted DateDiagnosed DateCARDIOVASCULAR SCREENING; LDL GOAL LESS THAN 160 07/31/2014 Family History Medical HistoryRelationCommentsCancerFatherdeceased 02/2005, lung cancerBreast CancerMaternal Aunt 1CancerMaternal Aunt 2lymphomaCoronary Artery Disease Maternal GrandfatherCoronary Artery DiseaseMaternal Uncle 1Coronary Artery DiseaseMaternal Uncle 2ArthritisMotherRARelationStatusCommentsFatherMaternal Aunt 1Maternal Aunt 2Maternal GrandfatherMaternal Uncle 1AliveMaternal Uncle 2 AliveMother Social History Tobacco UseTypesPacks/DayYears UsedDateSmoking Tobacco: FormerCigarettesQuit: 05/05/2003Smokeless Tobacco: Never Tobacco Cessation:Counseling Given: Yes Alcohol UseStandard Drinks/WeekCommentsYes0 (1 standard drink = 0.6 oz pure alcohol)Adolescent EducationAnswerDate RecordedGetting School Help NeededNot on file11/21/2022Sex and Gender InformationValueDate RecordedSex Assigned at Not on fileLegal WplWluf11/04/2012 4:16 AM CSTGender IdentityNot on fileSexual OrientationNot on file Last Filed Vital Signs Vital SignReadingTime TakenCommentsBlood Ulsathxx704/8005 9:17 AM CDT Jeugi973406/30/2021 9:17 AM ETOIoplfyoqisq28.2 ??C (99 ??F)07/31/2014 8:07 AM CDT Respiratory Chtu3068 9:17 AM CDTOxygen Hpmvhkawxu37%06/30/2021 9:17 AM CDTInhaled Oxygen Concentration--Ubgswi06.2 kg (190 lb)06/30/2021 9:17 AM CDT Bojdcb067.6 cm (5' 6)06/30/2021 9:17 AM CDTBody Mass Index30.67006/30/2021 9:17 AM CDT Plan of Treatment Not on file Care Teams Team MemberRelationshipSpecialtyStart DateEnd Date Mikhail Sherman MD [facility] [address] [place] [address] [facility] - General04/15/01
--- OUTSIDE RECORDS SUMMARY | 2025-02-09 13:59 | XMS_ITS | Encounter Summary ---
Author Organization [facility] Address [address] [address] Care Team Providers Care Surgical Aides Teacher Name Role Phone Marika Mendez PA-C Primary Care Provider [phone] Encounter Details DateTypeDepartmentCare Team (Latest Contact Info)Dxjgyehwccg36/03/2025Results Follow-Up [place] [address] [facility] [id number] [place] [phone] Marika Mendez PA-C [address] [place] [address] Social History Tobacco UseTypesPacks/DayYears UsedDateSmoking Tobacco: InfiwhOgqwibbqpf791Rfki: 2010Smokeless Tobacco: FormerSnuff, ChewQuit: 2010Alcohol UseStandard Drinks/WeekCommentsYes6 (1 standard drink = 0.6 oz pure alcohol)PHQ-2AnswerDate RecordedPHQ-2 Erhcx788Sex and Gender InformationValueDate RecordedSex Assigned at BirthNot on fileLegal RdkUqbi23/10/2012 5:04 AM CDTGender Identity Not on fileSexual OrientationNot on filedocumented as of this encounter Plan of Treatment Not on file documented as of this encounter Visit Diagnoses Not on filedocumented in this encounter Care Teams Team MemberRelationshipSpecialtyStart DateEnd Date Marika Mendez PA-C [address] [place] [address] PCP - GeneralPhysician Assistant09/26/23documented as of this encounter
--- NOTE | 2025-02-09 14:13 | ED.GENADULT ---
HPI - General Adult General Chief complaint: Chest Pain Stated complaint: chest pain, difficulty breathing Time Seen by Provider: 02/09/25 14:01 History of Present Illness HPI narrative: was in car headed from [place] to [place] when he became short of breath , came on gradually, denies chest pain, history of aortic aneurysm diagnosed 4 years ago, pt was drinking with friends last night, per he is hungover, woke up this am and had coffee, diet coke, ate some lunch then got nauseated, with vomiting 54-year-old man presenting to the emergency department. Difficult to get some information as he is keeping his eyes closed and as we began talking he starts breathing heavily in noting also that his hands, fingers have been tingling. Apparently was driving by when became more short of breath. That this is primary complaint here. Also mentions an aortic aneurysm during triage. Review of record shows thoracic aortic ectasia Spouse says that he has been having recurrent diverticulitis. Is not been complaining of abdominal pain until I am palpating him. Apparently was drinking quite a lot with friends last night and thought to be hung over. Had popcorn yesterday as well. Got nauseated though after eating lunch and has vomited a couple of times. No hematemesis noted. Related Data Previous Rx's ?Medication ?Instructions ?Recorded lisinopril 10 mg tablet 10 mg PO QDAY #30 tabs 03/23/22 Allergies Allergy/AdvReac Type Severity Reaction Status Date / Time No Known Drug Allergies Allergy Verified 02/09/25 13:58 Review of Systems Status of ROS: Reports: unobtainable due to mental status (Only complaining of shortness of breath) [facility] Medical History Personal history of nicotine dependence ?Z87.891 - Personal history of nicotine dependence (ICD-10) Family history of arthritis ?Z82.61 - Family history of arthritis (ICD-10) Family history of malignant neoplasm of trachea, bronchus and lung ?Z80.1 - Family history of malignant neoplasm of trachea, bronchus and lung (ICD-10) Social History Smoking Status: Never smoker How often do you have a drink containing alcohol: monthly or less AUDIT-C Alcohol total score: 1 Non-prescribed substance use: denies use Exam Narrative: Exam Narrative: Keeping his eyes closed and intermittently be in the breathing heavily. Says he does not have the strength to sit up. Lungs appear clear. Heart in regular rate and rhythm without murmur rub or gallop. Abdomen is soft and diffusely tender. He jumps with palpation. Extremities are well perfused without edema. Const: Vital Signs, click to edit/add: Vital Signs - 24 hr 02/09/25 13:58 02/09/25 14:01 02/09/25 14:02 Temperature 97.0 F L Pulse Rate 79 Pulse Rate [Right Pulse Oximeter] 72 Respiratory Rate 24 22 Blood Pressure 143/84 H Blood Pressure [Ri ght Upper Arm] 143/84 H Pulse Oximetry 100 100 97 Oxygen Delivery Me thod Room Air 02/09/25 14:31 02/09/25 15:01 02/09/25 15:31 Temperature Pulse Rate 64 70 61 Pulse Rate [Right Pulse Oximeter] Respiratory Rate 16 17 16 Blood Pressure 146/88 H 129/82 131/79 Blood Pressure [Ri ght Upper Arm] Pulse Oximetry 100 94 96 Oxygen Delivery Me thod 02/09/25 16:02 02/09/25 16:31 Temperature Pulse Rate 68 65 Pulse Rate [Right Pulse Oximeter] Respiratory Rate 15 11 L Blood Pressure 136/88 136/87 Blood Pressure [Ri ght Upper Arm] Pulse Oximetry 97 99 Oxygen Delivery Me thod Documenting provider has reviewed patient's vital signs: yes Course Vital Signs Vital signs: Initial Vital Signs Temperature 97.0 F L 02/09/25 13:58 Temperature Source Temporal Artery Scan 02/09/25 13:58 Pulse Rate 72 02/09/25 13:58 Respiratory Rate 24 02/09/25 13:58 Blood Pressure 143/84 H 02/09/25 13:58 Blood Pressure Mean 103 02/09/25 13:58 Blood Pressure Position Sitting 02/09/25 13:58 Pulse Oximetry 100 02/09/25 13:58 Oxygen Delivery Method Room Air 02/09/25 13:58 Vital Signs Temperature 97.0 F L 02/09/25 13:58 Pulse Rate 72 02/09/25 13:58 Respiratory Rate 24 02/09/25 13:58 Blood Pressure 143/84 H 02/09/25 13:58 Pulse Oximetry 100 02/09/25 13:58 Oxygen Delivery Method Room Air 02/09/25 13:58 Temperature 97.0 F L 02/09/25 13:58 Pulse Rate 65 02/09/25 16:31 Respiratory Rate 11 L 02/09/25 16:31 Blood Pressure 136/87 02/09/25 16:31 Pulse Oximetry 99 02/09/25 16:31 Oxygen Delivery Method Room Air 02/09/25 13:58 Medications Administered Medications: Discontinued Medications Generic Name Dose Route Start Last Admin Trade Name Gerald PRN Reason Stop Dose Admin Sodium Chloride 1,000 mls @ 1,000 mls/hr 02/09/25 14:27 02/09/25 15:45 0.9 % Sodium Chloride 1000 Ml IV 02/09/25 15:26 Infused .Q1H ONE Infusion Lorazepam 0.5 mg 02/09/25 14:28 02/09/25 14:46 Lorazepam 2 Mg/Ml Inj IVP 02/09/25 14:29 0.5 mg ONCE ONE Administration Ondansetron HCl 4 mg 02/09/25 14:27 02/09/25 14:46 Ondansetron 2 Mg/Ml Inj IVP 02/09/25 14:28 4 mg ONCE ONE Administration Medical Decision Making MDM Narrative Medical decision making narrative: Would be that anxiety is exacerbating some underlying symptoms. Not sure if this is the primary issue. Will treat for anxiety as well as his nausea. Initial high sensitivity troponin is normal. Differential also includes pulmonary embolus, ischemic cardiovascular event, dysrhythmia. Vascular dissection, pneumothorax Monitor on school psychometrist. EKG independently reviewed by me shows a normal sinus rhythm of 71. One-view chest x-ray independently reviewed by me looks to be WNL with normal mediastinum and cardiac silhouette no pneumothorax. Following initial treatment with lorazepam, Zofran, normal saline, he is rather sleepy but in no distress. Repeat abdominal exam shows it generally to be soft and he has repeated pain to palpation in the right mid abdomen. This is reported similar, familiar pain and where he tends to get diverticulitis. Labs are reassuring with minimally elevated D-dimer. I think sequence of events was driving and nauseated, large vomiting, spouse seems to think some degree of motion sickness contributed. And then evolution of a panic attack. Pain in abdomen was not initially consciously noted. Since pain is familiar would propose treating this. Labs do not suggest something more dire occurring. After period of monitoring in the emergency department is without event on school psychometrist. Repeating high sensitivity troponin at 2 hours remains normal as well as EKG. Feels sleepy but well for discharge. Sorry to contribute to you being so sleepy. Hopefully you can rest well tonight however. Prescribing ciprofloxacin and metronidazole from [facility]. Take 1st dose upon receipt. Also Zofran for nausea if you want. Take ibuprofen or acetaminophen at this point for pain. I understand you would prefer not to have opiate type pain medication given sensitivity. Be seen for marked increase in pain, fever, intractable vomiting. It might be worth having a consultation with General surgery given persistent recurrence of diverticulitis that you have noted. Medical Records Medical records reviewed: Yes I reviewed the patient's medical records Lab Data Lab results reviewed: Yes I reviewed the patient's lab results Labs: Lab Results 02/09/25 02/09/25 02/09/25 Range/Units 14:00 14:02 15:01 WBC 8.35 (4.50-11.00) K/uL RBC 4.55 (4.30-5.90) m/uL Hgb 14.1 (13.5-17.5) gm/dL Hct 40.7 (37.0-53.0) % MCV 90 (80-100) fL MCH 31 (26-34) pg MCHC 35 (32-36) gm/dL RDW Coeff of Narcisa 12.8 (11.5-15.5) % Plt Count 322 (140-440) K/uL Neut % (Auto) 60.4 (42.0-72.0) % Lymph % (Auto) 27.2 (20-44) % [facility] [place] % (Auto) 9.9 (0.0-11.0) % Eos % (Auto) 1.7 (0.0-7.0) % Baso % (Auto) 0.6 (0.0-3.0) % Neut # (Auto) 5.04 (1.7-7.0) K/uL Lymph # (Auto) 2.27 (0.90-2.90) K/uL [facility] # (Auto) 0.80 (0.00-0.90) K/UL Eos # (Auto) 0.14 (0.00-0.50) K/uL Baso # (Auto) 0.05 (0.00-0.30) K/uL Abs Immat Gran (auto) 0.02 (0.00-0.30) K/uL Imm/Tot Granulo (auto) 0.2 % D-Dimer Quant (PE/DVT) 0.69 H (0.00-0.50) ug/ml Sodium 139 (135-149) mmol/L Potassium 3.0 L (3.6-5.1) mmol/L Chloride 104 (96-114) mmol/L Carbon Dioxide 19 L (20-32) mmol/L Anion Gap 16 H (7-15) mEq/L BUN 11 (7-30) mg/dL Creatinine 0.8 (0.5-1.5) mg/dL Estimated Creat Clear 97.54 Estimated GFR 105 ml/min Glucose 141 H (60-115) mg/dL Calcium 9.6 (8.4-10.6) mg/dL Total Bilirubin 0.4 (0.1-1.5) mg/dL Direct Bilirubin 0.2 (0.0-0.5) mg/dL AST 39 H (12-35) U/L ALT 38 (4-50) U/L Alkaline Phosphatase 67 (40-150) U/L Troponin I < 0.01 (0.01-0.04) ng/mL POC Troponin I High Sensi < 2.9 L < 2.9 L (2.9-28.0) pg/mL NT-Pro-B Natriuret Pep < 20 (See Note) pg/mL Total Protein 7.8 (6.0-8.3) g/dL Albumin 5.1 H (3.3-5.0) g/dL Ethyl Alcohol < 0.01 (0.01-0.03) % SARS-CoV-2 (PCR) Negative SARS-CoV-2 (Negative) Influenza Type A (PCR) Negative PCR FLU A (Negative) Influenza Type B (PCR) Negative PCR FLU B (Negative) RSV (PCR) Negative PCR RSV (Negative) Lab Acknowledgement Test Added ECG Data Attestation: I personally reviewed and interpreted this ECG as follows: (Initial EKG looks to show normal sinus rhythm. PVC? Rate of 71 EKG 2. In normal sinus rhythm. No ischemic changes appreciated. Rate of 61) Discharge Plan Discharge Clinical Impression: Diverticulitis, Abdominal pain, Anxiety attack Patient Disposition: Home w/ Parent or Adult Condition: Improved Additional Instructions: Sorry to contribute to you being so sleepy. Hopefully you can rest well tonight however. Prescribing ciprofloxacin and metronidazole from [facility]. Take 1st dose upon receipt. Also Zofran for nausea if you want. Take ibuprofen or acetaminophen at this point for pain. I understand you would prefer not to have opiate type pain medication given sensitivity. Be seen for marked increase in pain, fever, intractable vomiting. It might be worth having a consultation with General surgery given persistent recurrence of diverticulitis that you have noted. Prescriptions: No Action lisinopril 10 mg tablet 10 mg PO QDAY Qty: 30 0RF Follow Up/Referrals: Venkatesh Chanel MD [Referring, Family Practice] Stand Alone Forms: [employer] Info Instructions
--- NOTE | 2025-02-09 14:27 | CRLHL7_ITS ---
For Patients: As a result of the Cures Act, medical imaging exams and procedure reports are released immediately into your electronic medical record. You may view this report before your referring provider. If you have questions, please contact your health care provider. INDICATION: Shortness of breath TECHNIQUE: Chest radiograph 1 view COMPARISON: None FINDINGS: Mediastinum: The mediastinum is normal in appearance. The heart silhouette is normal in size and morphology. Lung: Both lungs are unremarkable in appearance. No sign of pleural effusion seen. No pneumothorax is identified. Bone and Soft tissue: Unremarkable for age. IMPRESSION: 1. No acute cardiopulmonary disease is seen. Dictated by: Claude Salazar MD @ 02/09/2025 15:18:29 (Electronically Signed)
[2025-02-09] MEDS: ONDANSETRON 2 MG/ML inj 4 MG IVP (14:46)
[2025-02-09 14:50] LABS: Hematocrit* 40.7 % (37.0-53.0); Hemoglobin* 14.1 gm/dL (13.5-17.5); Immature Granulocytes Abs Auto 0.02 K/uL (0.00-0.30); Immature Granulocytes Pct Auto 0.2 %; Lymphocytes Absolute Auto 2.27 K/uL (0.90-2.90); Mean Corpuscular HGB Conc 35 gm/dL (32-36); Mean Corpuscular Hemoglobin 31 pg (26-34); Mean Corpuscular Volume 90 fL (80-100); RDW Coefficient of Variation % 12.8 % (11.5-15.5); Red Blood Count* 4.55 m/uL (4.30-5.90); White Blood Count* 8.35 K/uL (4.50-11.00)
[2025-02-09 14:51] LABS: Slide Review Reflex No
[2025-02-09 15:01] LABS: Albumin* 5.1 g/dL (3.3-5.0); Chloride* 104 mmol/L (96-114); Potassium* 3.0 mmol/L (3.6-5.1); Sodium* 139 mmol/L (135-149)
[2025-02-09 15:04] LABS: Alanine Aminotransferase* 38 U/L (4-50); Alkaline Phosphatase* 67 U/L (40-150); Anion Gap 16 mEq/L (7-15); Aspartate Amino Transferase* 39 U/L (12-35); Bilirubin Direct* 0.2 mg/dL (0.0-0.5); Bilirubin Total* 0.4 mg/dL (0.1-1.5); Blood Urea Nitrogen* 11 mg/dL (7-30); Calcium* 9.6 mg/dL (8.4-10.6); Carbon Dioxide* 19 mmol/L (20-32); Creatinine* 0.8 mg/dL (0.5-1.5); Est. Creatinine Clearance* 97.54; Estimated Glomerular Filt Rate 105 ml/min; Glucose* 141 mg/dL (60-115); Total Protein* 7.8 g/dL (6.0-8.3)
[2025-02-09 15:05] LABS: Ethanol* < 0.01 % (0.01-0.03)
[2025-02-09 15:07] LABS: D Dimer Quantitative* 0.69 ug/ml (0.00-0.50)
[2025-02-09 15:17] LABS: NT Pro B Type NatriureticPept* < 20 pg/mL (See Note)
[2025-02-09 15:22] LABS: PCR FLU A Negative PCR FLU A (Negative); PCR FLU B Negative PCR FLU B (Negative); PCR RSV Negative PCR RSV (Negative); SARS PCR* Negative SARS-CoV-2 (Negative)
== END 2025-02-09 17:08 | disposition home or self-care (01) ==
PROVIDERS: Emergency Provider Family Medicine
DX: K57.20 Diverticulitis of large intestine with perforation and abscess without bleeding (principal); R10.9 Unspecified abdominal pain; F41.9 Anxiety disorder, unspecified
CPT/HCPCS: 36415; 71045; 80048; 80076; 82077; 83880; 84484; 85025; 85379; 87631; 93005; 94761; 96374; 96375; 99284; 99285; J2060; J2405; J7030